=== PATIENT | male | born 1950 | race Caucasian/White ===

== ENCOUNTER 2022-04-05 08:00 | Observation (INO) | payer MEDICARE ==
[~2022-04-05] VITALS: Ht 180.3 cm; Wt 135.1 kg
[2022-04-30] MEDS ORDERED: LEVO125 PO (09:48)
[2022-04-30] MEDS ORDERED: ALLO-45 PO (09:48)
[2022-05-03] MEDS ORDERED: RINGERS SOLUTION,LACTATED 1,000 ML IV ONE (06:00)
[2022-05-31] MEDS ORDERED: RINGERS SOLUTION,LACTATED 1,000 ML IV ONE ×2 (06:12→08:30)
[2022-05-31] MEDS ORDERED: CeFAZolin 2 GM/DEXTROSE 50 ML IV ONE ×2 (06:12→08:30)
[2022-05-31] MEDS ORDERED: BENZOCAINE/MENTHOL LOZENGE PO PRN (08:30)
[2022-05-31] MEDS ORDERED: ONDANSETRON HCL 4 MG/2 ML VIAL IVP PRN ×3 (08:30→10:30)
[2022-05-31] MEDS ORDERED: MAG HYDROX/AL HYDROX/SIMETH 30 ML SUSP UDCUP PO PRN (08:30)
[2022-05-31] MEDS ORDERED: ZOLPIDEM TARTRATE 10 MG TABLET PO PRN ×2 (08:30→10:30)
[2022-05-31] MEDS ORDERED: DiphenhydrAMINE HCL 50 MG/ML VIAL IVP PRN (08:30)
[2022-05-31 08:41] LABS: COVID AG,FIA SOURCE NASAL SWAB
[2022-05-31] MEDS ORDERED: BUPIVACAINE LIPOSOME/PF 1.3%-13.3MG/ML SUSPENSION 10 ML VIAL INJ ONE (09:00)
[2022-05-31] MEDS: DOCUSATE SODIUM 100 MG CAPSULE PO SCH ×2 (09:00→20:09)
[2022-05-31] MEDS ORDERED: BUPIVACAINE HCL/PF 0.5% 30 ML VIAL ONE (09:02)
[2022-05-31] MEDS ORDERED: VANCOMYCIN HCL 1 GM/VIAL ONE (09:02)
[2022-05-31] MEDS ORDERED: ACETAMINOPHEN 325 MG TABLET PO PRN (10:15)
[2022-05-31] MEDS ORDERED: HYDROmorphone 2 MG/ML VIAL IVP PRN ×2 (10:30)
[2022-05-31] MEDS ORDERED: MEPERIDINE-PF 25 MG/ML VIAL IVP PRN (10:30)
[2022-05-31] MEDS ORDERED: CYCLOBENZAPRINE HCL 10 MG TABLET PO PRN (10:30)
[2022-05-31] MEDS ORDERED: OxyCODONE HCL 5 MG IR TABLET PO PRN (10:30)
[2022-05-31] MEDS ORDERED: FentaNYL CITRATE PF 100 MCG/2 ML VIAL IVP PRN (10:30)
[2022-05-31] MEDS ORDERED: ZOLPIDEM TARTRATE 5 MG TABLET PO PRN (10:30)
[2022-05-31 12:00] VITALS: BP 138/77
[2022-05-31] MEDS ORDERED: LIDOCAINE/PF 2% 5 ML VIAL IM ONE (12:00)
[2022-05-31] MEDS ORDERED: FentaNYL CITRATE PF 100 MCG/2 ML VIAL IVP ONE (12:00)
[2022-05-31] MEDS ORDERED: METOPROLOL TARTRATE 5 MG/5 ML VIAL IVP ONE (12:00)
[2022-05-31] MEDS ORDERED: ONDANSETRON HCL 4 MG/2 ML VIAL IVP ONE (12:00)
[2022-05-31] MEDS ORDERED: PROPOFOL 1% 20 ML VIAL IVP ONE (12:00)
[2022-05-31] MEDS ORDERED: DEXAMETHASONE SOD PHOS 4 MG/ML VIAL IVP ONE (12:00)
[2022-05-31] MEDS ORDERED: ROCURONIUM BROMIDE 10 MG/ML 5 ML VIAL IVP ONE (12:00)
[2022-05-31] MEDS ORDERED: PHENYLEPHRINE HCL 10 MG/ML VIAL IVP ONE (12:00)
[2022-05-31] MEDS ORDERED: KETOROLAC TROMETHAMINE 60 MG/2 ML VIAL IM ONE (12:00)
[2022-05-31] MEDS ORDERED: MORPHINE SULFATE/PF 0.5 MG/ML 10 ML AMP IVP ONE (12:00)
[2022-05-31] MEDS ORDERED: 0.9% SODIUM CHLORIDE 10 ML VIAL IVP ONE (12:00)
[2022-05-31 16:34] VITALS: BP 142/69
[2022-05-31] MEDS: ACETAMINOPHEN 1000 MG/ISO-OSM 100 ML IV SCH ×2 (16:49→22:06)
[2022-05-31] MEDS: OXYGEN THERAPY IH SCH (20:05)
[2022-05-31 20:10] VITALS: BP 130/67
[2022-05-31] MEDS ORDERED: DOCUSATE SODIUM 100 MG CAPSULE PO SCH (21:00)
[2022-06-01] MEDS: ACETAMINOPHEN 1000 MG/ISO-OSM 100 ML IV SCH (03:41)
[2022-06-01 05:10] VITALS: BP 123/64
[2022-06-01 07:07] LABS: BASOPHILS % (AUTO) 0.2 % (0.0-2.0); EOSINOPHILS % (AUTO) 0.3 % (1.0-6.0); HEMATOCRIT 43.3 % (41-53); HEMOGLOBIN 14.4 g/dL (13.5-17.5); LYMPHOCYTES # (AUTO) 1.6 K/uL (1.0-4.8); LYMPHOCYTES % (AUTO) 10.9 % (22.0-44.0); MEAN CORPUSCULAR HEMOGLOBIN 30.9 pg (26.0-34.0); MEAN CORPUSCULAR HGB CONC 33.3 G/dL (31.0-37.0); MEAN CORPUSCULAR VOLUME 93 fL (80-100); MONOCYTES # (AUTO) 1.1 K/uL (0.1-1.0); MONOCYTES % (AUTO) 7.3 % (2.0-9.0); NEUTROPHILS # (AUTO) 11.9 K/uL (1.8-7.7); NEUTROPHILS % (AUTO) 81.3 % (40.0-70.0); PLATELET COUNT (AUTO) 260 K/uL (150-450); RED BLOOD CELL COUNT(AUTO) 4.67 MIL/uL (4.50-5.90); RED CELL DISTRIBUTION WIDTH 15.3 % (11.5-14.5)
[2022-06-01 07:33] LABS: BILIRUBIN,TOTAL 0.4 mg/dL (0.1-1.0); CALCIUM, TOTAL 9.5 mg/dL (8.8-10.5); CREATININE 1.6 mg/dL (0.60-1.30); POTASSIUM 4.9 mmol/L (3.5-5.1); THYROID STIMULATING HORMONE 0.3 uIU/mL (0.36-3.74); TOTAL PROTEIN, SERUM 7.2 g/dL (6.4-8.2)
[2022-06-01 07:57] VITALS: BP 128/68
[2022-06-01] MEDS: OXYGEN THERAPY IH SCH (08:00)
[2022-06-01] MEDS: DOCUSATE SODIUM 100 MG CAPSULE PO SCH (09:00)
[2022-06-01] MEDS ORDERED: FAMOTIDINE 20 MG TABLET PO SCH (09:00)
[2022-06-01] MEDS ORDERED: OxyCODONE HCL/ACETAMINOPHEN 10-325 MG TABLET PO PRN (09:30)
== END 2022-06-01 15:15 | disposition home or self-care (01) ==
LOC: 6S 05-31 08:09 → INTOOBSV 05-31 08:09
PROVIDERS: ADMIT Orthopaedic Surgery Orthopaedic Surgery of the Spine; ATTEND Orthopaedic Surgery Orthopaedic Surgery of the Spine
DX: M48.061 Spinal stenosis, lumbar region without neurogenic claudication (principal); Z20.822 Contact with and (suspected) exposure to COVID-19; G47.30 Sleep apnea, unspecified; M54.16 Radiculopathy, lumbar region; E03.9 Hypothyroidism, unspecified; M10.9 Gout, unspecified; E66.01 Morbid (severe) obesity due to excess calories; Z68.41 Body mass index [BMI] 40.0-44.9, adult; Z79.899 Other long term (current) drug therapy; Z98.890 Other specified postprocedural states
CPT/HCPCS: 63047; 63048 ×3; 99219 ×2; 96365; 96366 ×2; 87081; 87426; 80053; 84443; 85025; 36415; 97162; 97166; C1716; J3490 ×4; J2704; J1100; J3010; J1885; J2274; J2405; J2370; J3370; Q9967; J7120; J0131 ×2; J0690; J1030